=== PATIENT | male | born 1975 | race Two or more races ===

== ENCOUNTER 2020-07-01 18:24 | Inpatient (IN) | payer BC ==
[~2020-07-01] VITALS: Ht 170.2 cm; Wt 99.8 kg
[2020-07-01] MEDS ORDERED: NITROGLYCERIN PACKET 1 GM PACKET ONE (18:35)
[2020-07-01] MEDS ORDERED: UNK BP MEDICATION PO (18:41)
--- NOTE | 2020-07-01 18:42 | NUR ---
ALEISHARA TO ER BED 12. AAOX4. NO TIN RESP DISTRESS. AMBULATORY, TRANSFERRED FROM EMS [facility] TO ER BED W/O ASSIST. CAME IN FOR A MIDSTERNAL CHEST PAIN STARTED @ 1730. PT REPORTS THAT THE PAIN WAS RADIATING TO THE R SHOULDER THEN TO THE NECK. HE RATED THAT PAIN 9/10. EMS GAVE PT A SPRAY OF NOTROGLYCERIN 0.4MG AND ASPIRIN 325MG. PT'S PAIN DURING ASSESSMENT WAS RATED 1/10 AND VERBALIZED THAT THE PAIN GOT BETTER AFTER THE NITROGLYCERIN. EKG DONE AT BEDSIDE. WAS AT THE BEDSIDE FOR EVAL. PT ON MONITOR. ORDERS RECEIVED NOTED AND CARRIED OUT. IV LINE ESTABLISHED ON RFA 18G, BLOOD DRAWN AND GIVEN TO ENVIRONMENTAL SAFETY SPECIALIST AT BEDSIDE. WILL CONTINUE TO MONITOR PT
[2020-07-01] MEDS ORDERED: NITROGLYCERIN PACKET 1 GM PACKET TD ONE (19:00)
[2020-07-01 19:08] LABS: CREATININE 0.9 mg/dL (0.6-1.3); POTASSIUM 3.1 mmol/L (3.5-5.1)
[2020-07-01 19:10] LABS: BASOPHILS % (AUTO) 0.4 % (0.0-2.0); HEMATOCRIT 52 % (39-51); HEMOGLOBIN 18.2 g/dL (13.5-17.5); LYMPHOCYTES # (AUTO) 1.5 /CMM (0.8-4.8); LYMPHOCYTES % (AUTO) 15.5 % (20.0-44.0); MEAN CORPUSCULAR HGB CONC 35 g/dl (31.0-36.0); MEAN CORPUSCULAR VOLUME 92 fL (80-96); MONOCYTES # (AUTO) 0.9 /CMM (0.1-1.30); NEUTROPHILS # (AUTO) 7.3 /CMM (1.8-8.9); NEUTROPHILS % (AUTO) 73.1 % (43.0-81.0); PLATELET COUNT (AUTO) 316 /CMM (150-450); RED BLOOD CELL COUNT(AUTO) 5.62 MIL/uL (4.5-6.0); WHITE BLOOD COUNT (AUTO) 9.9 K/uL (4.3-11.0)
--- NOTE | 2020-07-01 19:28 | NUR ---
PANEL PAGED WILL CALL BACK.
--- NOTE | 2020-07-01 19:34 | NUR ---
DR. MONK SPEAKING WITH DR. LYONS REGARDING ADMISSION
--- NOTE | 2020-07-01 19:35 | NUR ---
CALLED NURSING SUP FOR BED
[2020-07-01 20:00] VITALS: BP 117/74
--- NOTE | 2020-07-01 20:30 | NUR ---
316-1 PENDING COVID RESULTS
--- NOTE | 2020-07-01 20:37 | NUR ---
REC'D NEG COVID RESULTS. AWARE
--- NOTE | 2020-07-01 20:41 | NUR ---
REPORT GIVEN TO SHELDON WYATT FOR CARMEN
[2020-07-01 21:00] LABS: NEUTROPHILS % (MANUAL) 79 (42-76)
[2020-07-01 21:01] LABS: EOSINOPHILS % (MANUAL) 1 % (0-4); LYMPHOCYTES % (MANUAL) 12 % (16-48); MONOCYTES % (MANUAL) 8 % (0-11.0)
--- NOTE | 2020-07-01 21:15 | NUR ---
PT TRANSPORTED TO UNIT ON GURNEY WITH EMT AND RN AT BEDSIDE W/ ACLS PROTOCOL. NAD NOTED DURING TRANSPORT.
[2020-07-01 21:20] VITALS: BP 117/74
--- NOTE | 2020-07-01 21:20 | NUR ---
tele supervisor whipped topping initial notes received a patient from ER via gurcoco accompanied by ER nurse and tech. DX of Chest Pain. Pt is alert oriented, ambulatory. Accdg to the pt he's here before long time ago. Denies any pain or any discomfort at this time. Skin warm and dry to touch, no SOB noted as well in room air. Heplock on his right forearm patent and intact. tele monitor applied to his chest wall and told him what the purpose of it and pt understood well. oriented also how to used the call light system and and encourage him to use it if he needs some help or needs the nurse as well. offered something to eat and pt requested to have the tuna sandwich and cranberry juice. kept him warm and comfortable at all times. will continue monitoring.
[2020-07-01] MEDS ORDERED: ZOLPIDEM TARTRATE 5 MG TABLET PO PRN (21:30)
[2020-07-01] MEDS ORDERED: HYDROCODONE/APAP 5/325MG TABLET PO PRN (21:30)
[2020-07-01] MEDS ORDERED: ONDANSETRON HCL/PF 4 MG/2 ML VIAL IVP PRN (21:30)
[2020-07-01] MEDS ORDERED: POTASSIUM CHLORIDE 20 MEQ TAB.PRT.SR PO ONE (21:30)
[2020-07-01] MEDS ORDERED: ACETAMINOPHEN 325 MG TABLET PO PRN (21:30)
[2020-07-02] VITALS: BP 113/69
[2020-07-02 00:13] VITALS: BP 113/69
--- NOTE | 2020-07-02 00:49 | NUR ---
TELE TALENT SOLUTIONS MANAGER NOTES PT SLEEPING AT THIS TIME VITAL SIGNS WITHIN NORMAL LIMIT. NO SIGNS OF ANY DISCOMFORT NOTED. NO SIGNS OF DISTRESS WELL. TELE SR 70 PER MONITOR . KEPT HIM WARM AND COMFORTABLE AT ALL TIMES. WILL CONTINUE MONITORING. PLACE CALL LIGHT AT REACH.
[2020-07-02 04:00] VITALS: BP 112/77
[2020-07-02 06:58] LABS: BASOPHILS # (AUTO) 0.1 /CMM (0.0-0.2); BASOPHILS % (AUTO) 0.8 % (0.0-2.0); EOSINOPHILS % (AUTO) 3.2 % (0.0-6.0); HEMATOCRIT 48 % (39-51); HEMOGLOBIN 16.5 g/dL (13.5-17.5); LYMPHOCYTES # (AUTO) 1.7 /CMM (0.8-4.8); LYMPHOCYTES % (AUTO) 26.4 % (20.0-44.0); MEAN CORPUSCULAR HGB CONC 35 g/dl (31.0-36.0); MEAN CORPUSCULAR VOLUME 92 fL (80-96); MONOCYTES # (AUTO) 0.7 /CMM (0.1-1.30); MONOCYTES % (AUTO) 10.7 % (2.0-12.0); NEUTROPHILS # (AUTO) 3.8 /CMM (1.8-8.9); NEUTROPHILS % (AUTO) 58.9 % (43.0-81.0); PLATELET COUNT (AUTO) 266 /CMM (150-450); RED BLOOD CELL COUNT(AUTO) 5.18 MIL/uL (4.5-6.0); WHITE BLOOD COUNT (AUTO) 6.4 K/uL (4.3-11.0)
[2020-07-02 07:18] LABS: ALBUMIN 3.6 g/dL (3.4-5.0); BILIRUBIN,TOTAL 0.9 mg/dL (0.2-1.0); CALCIUM, SERUM 8.8 mg/dL (8.5-10.1); MAGNESIUM 2.5 mg/dL (1.8-2.4); PHOSPHORUS 3.3 mg/dL (2.5-4.9); TOTAL PROTEIN, SERUM 7.1 g/dL (6.4-8.2)
[2020-07-02] MEDS ORDERED: PANTOPRAZOLE 40 MG TABLET.DR PO SCH (07:30)
--- NOTE | 2020-07-02 07:30 | NUR ---
CENTRAL OFFICE EQUIPMENT ENGINEER NOTES PT IN BED, AWAKE, ALERT AND ORIENTED, NO COMPLAINT OF CHEST PAIN OR ANY DISCOMFORT, BREATHING PATTERN NORMAL, CALL LIGHT WITHIN REACH, NEEDS ATTENDED.
[2020-07-02 07:35] LABS: THYROID STIMULATING HORMONE 2.239 uIU/mL (0.358-3.74)
--- NOTE | 2020-07-02 07:45 | NUR ---
tele nascar racer closing notes pt awake and alert denies any pain or discomfort at this time. slept well and stable throughout the night . tele SR per monitor. vital signs stable. kept him warm and comfortable a tall times. will continue monitoring . endorse to am nurse for continuity of care.
[2020-07-02 08:00] VITALS: BP 118/78
[2020-07-02] MEDS ORDERED: ATORVASTATIN 40 MG TABLET PO SCH (08:00)
[2020-07-02] MEDS ORDERED: POTASSIUM CHLORIDE 20 MEQ TAB.PRT.SR PO ONE (08:00)
[2020-07-02] MEDS ORDERED: ENOXAPARIN SODIUM 100 MG/ML DISP.SYRIN SQ SCH (08:00)
[2020-07-02] MEDS ORDERED: ASPIRIN 81 MG TAB.CHEW PO SCH (09:00)
--- NOTE | 2020-07-02 10:21 | NUR ---
SCHOOL PROGRAM DIRECTOR NOTES RECEIVED ORDER FROM DR. CORTEZ TO DO CTCA, PT INFORMED.
[2020-07-02] MEDS ORDERED: NITROGLYCERIN 0.4 MG/TAB BOTTLE SL ONE (11:00)
[2020-07-02] MEDS ORDERED: METOPROLOL TARTRATE INJ 5 MG/5 ML AMPUL IVP PRN (11:00)
[2020-07-02] MEDS ORDERED: METOPROLOL TARTRATE INJ 5 MG/5 ML AMPUL ONE (11:06)
[2020-07-02] MEDS ORDERED: IOHEXOL-350 100 ML VIAL IV ONE (11:07)
[2020-07-02] MEDS ORDERED: IV NS 0.9% 250 ML IV ONE (11:08)
[2020-07-02 11:17] VITALS: BP 125/89
--- NOTE | 2020-07-02 11:57 | NUR ---
SELF PROPELLED MINING MACHINE OPERATOR NOTES PT COMPLETED CTA HEART, NO OTHER COMPLAINT AT THIS TIME, LUNCH SERVED.
--- NOTE | 2020-07-02 15:10 | NUR ---
SENIOR SOLUTIONS ARCHITECT NOTES PT IN BED, AWAKE, ALERT AND ORIENTED, NO COMPLAINT OF PAIN, NOT IN DISTRESS, ABLE TO AMBULATE IN THE ROOM WITH STEADY GAIT, SEEN BY DR. CORTEZ, PT CLEARED FOR DISCHARGE, DISCHARGE AND MEDICATION INSTRUCTIONS PROVIDED TO PT, VERBALIZED UNDERSTANDING, PT TO FOLLOW UP WITH DR. CORTEZ, VERBALIZED UNDERSTANDING, BELONGINGS ACCOUNTED FOR, ACCOMPANIED TO HOSPITAL LOBBY, PICKED UP BY HIS SON, LEFT VIA PRIVATE CAR IN STABLE CONDITION.
== END 2020-07-02 15:00 | disposition home or self-care (01) | DRG 282 ==
LOC: ER 18:24 → TELE 20:45
PROVIDERS: ADMIT Internal Medicine; ATTEND Nurse Practitioner Acute Care
DX: I21.4 Non-ST elevation (NSTEMI) myocardial infarction (principal); I10 Essential (primary) hypertension; Z82.49 Family history of ischemic heart disease and other diseases of the circulatory system; Z82.3 Family history of stroke; Z87.891 Personal history of nicotine dependence; E87.6 Hypokalemia; Z68.34 Body mass index [BMI] 34.0-34.9, adult; E66.9 Obesity, unspecified
CPT/HCPCS: 36415; 71045-TC; 75574; 80048-TC; 80053-TC; 80061-TC; 83735-TC; 84100-TC; 84443-TC; 84484-TC; 85025-TC; 87081-TC; 93307-TC; C9803; G0378; J1650; J3490; J7050; Q9967